=== PATIENT | male | born 2000 | race Caucasian/White ===

== ENCOUNTER → 2024-07-20 11:12 | Outpatient (CLI) | payer OTHER, SELFPAY ==
--- NOTE | 2024-07-20 11:15 | DI.RAD.S_ITS ---
PROCEDURE: XR FOOT RT 3V INDICATIONS: Right lateral foot pain TECHNIQUE: 3 views of the foot were acquired. COMPARISON: None. FINDINGS: Bones: Well corticated 2 cm calcific density lateral to the proximal base of the right 5th metatarsal commonly represents remote fracture with nonunion although variant apophysis with pseudoarthrosis could have a similar appearance. Mild degenerative changes of the tibiotalar, talonavicular, calcaneocuboid and 1st metatarsal phalangeal joints with joint space narrowing and small osteophytes. 3 mm posterior calcaneal enthesophyte calcification. IMPRESSION: Irregular appearance of the proximal base right 5th metatarsal as discussed above. No gross radiographic evidence of acute fracture or dislocation. If symptoms persist or worsen, or there is high clinical suspicion of right foot abnormality, MRI could be performed. Dictated by: Rah Caal M.D. on 07/20/2024 at 11:47 Approved by: Rah Caal M.D. on 07/20/2024 at 11:50
== END ==
PROVIDERS: Referring Provider Registered Nurse; Visit Provider Registered Nurse
DX: M77.31 Calcaneal spur, right foot (principal); M79.671 Pain in right foot
CPT/HCPCS: 73630

== ENCOUNTER → 2024-10-29 11:26 | Outpatient (CLI) | payer OTHER, SELFPAY ==
--- NOTE | 2024-10-29 11:27 | DI.CT.S_ITS ---
PROCEDURE: CT FOOT RIGHT WITHOUT CON INDICATIONS: FRACTURE BASE OF FIFTH METATARSAL TECHNIQUE: Noncontrast 1-1.5 mm axial sections acquired from above the tibiotalar joint to the bottom of the calcaneus, with coronal and sagittal reformats. COMPARISON: [facility] [place], CR, XR FOOT 3+ VIEWS RIGHT, 08/25/2024, 8:58. FINDINGS: Image quality: Excellent. Bones: Oblique fracture at the base of the 5th metatarsal, with extensive subchondral cystic changes, chronic. No associated bridging callus formation. Mild subchondral cystic changes at the proximal navicular, degenerative. Plantar and posterior calcaneal enthesophyte. Os trigonum. Small ossification at the anterior process of the calcaneus, raising concern for chronic small avulsion fracture. Soft tissues: The flexors, extensors, peroneal, and the distal Achilles tendons are grossly intact. Muscle is grossly normal in bulk. IMPRESSION: 1. Oblique fracture of the base of 5th metatarsal, chronic. 2. Small chronic avulsion fracture at the anterior process of the calcaneus. Dictated by: Jamia Montalvo M.D. on 10/31/2024 at 16:45 Approved by: Jamia Montalvo M.D. on 10/31/2024 at 16:52
== END ==
LOC: CT 11:26
PROVIDERS: Referring Provider Podiatrist; Visit Provider Podiatrist
DX: S92.351A Displaced fracture of fifth metatarsal bone, right foot, initial encounter for closed fracture (principal); S92.021A Displaced fracture of anterior process of right calcaneus, initial encounter for closed fracture; X58.XXXA Exposure to other specified factors, initial encounter
CPT/HCPCS: 73700